=== PATIENT | female | born 1945 | race Caucasian/White ===

== ENCOUNTER 2023-01-18 22:14 | Outpatient (REF) | payer MEDICARE, SELFPAY ==
[2023-01-19 08:58] LABS: PCR FLU A Negative PCR FLU A (Negative); PCR FLU B Negative PCR FLU B (Negative); SARS PCR* ND (Negative)
== END 2023-01-18 22:15 | disposition home or self-care (01) ==
LOC: LAB 22:14
PROVIDERS: PCP Family Medicine; Visit Provider Nurse Practitioner Adult Health
DX: J10.1 Influenza due to other identified influenza virus with other respiratory manifestations (principal)
CPT/HCPCS: 87631

== ENCOUNTER 2023-11-17 14:58 | Outpatient (REF) | payer MEDICARE, BC, MEDICAID, SELFPAY ==
[2023-11-17 16:50] LABS: PCR FLU A Negative PCR FLU A (Negative); PCR FLU B Negative PCR FLU B (Negative); PCR RSV Negative PCR RSV (Negative); SARS PCR* Negative SARS-CoV-2 (Negative)
== END 2023-11-17 14:59 | disposition home or self-care (01) ==
LOC: NPINS 14:58
PROVIDERS: PCP Family Medicine; Visit Provider Nurse Practitioner Adult Health
DX: R05.1 Acute cough (principal)
CPT/HCPCS: 87631

== ENCOUNTER 2024-04-18 07:57 | Outpatient (REF) | payer MEDICARE, BC, MEDICAID, SELFPAY ==
[2024-04-18 08:11] LABS: Appearance Urine Cloudy (Clear); Bilirubin Urine Negative (Negative); Blood Urine Negative (Negative); Color Urine Yellow (Yellow); Glucose Urine Negative (Negative); Ketones Urine Negative (Negative); Leukocyte Esterase Urine Trace (Negative); Nitrite Urine Negative (Negative); Protein Urine Trace (Negative); Specific Gravity Urine >= 1.030 (1.000-1.030); Urobilinogen Urine 0.2 (0.2-1.0); pH Urine 5.5 (5.0-8.5)
[2024-04-18 08:25] LABS: RBC Urine 0-2 (0-2); Squamous Epithelial Cell Urine Few (None-Few)
[2024-04-18 08:26] LABS: Bacteria Urine Moderate
== END 2024-04-18 07:58 | disposition home or self-care (01) ==
LOC: NPINS 07:57
PROVIDERS: PCP Family Medicine; Visit Provider Nurse Practitioner Gerontology
DX: R44.3 Hallucinations, unspecified (principal); Z87.440 Personal history of urinary (tract) infections; F05 Delirium due to known physiological condition; R82.998 Other abnormal findings in urine
CPT/HCPCS: 81001; 87086

== ENCOUNTER 2024-04-19 14:48 | Emergency (ER) | payer MEDICARE, BC, MEDICAID, SELFPAY ==
[2024-04-19 14:56] VITALS: BP 139/78; PULSE 74; RESP 18; TEMP 36.6; O2SAT 97
--- NOTE | 2024-04-19 15:06 | CRLHL7_ITS ---
For Patients: As a result of the Century Cures Act, medical imaging exams and procedure reports are released immediately into your electronic medical record. You may view this report before your referring provider. If you have questions, please contact your health care provider. INDICATION: Delusions TECHNIQUE: CT of the head was performed without IV contrast. COMPARISON: 10/15/2021. FINDINGS: Parenchyma: No acute hemorrhage, infarction, or mass. Moderate confluent periventricular white matter hypoattenuation is nonspecific and is favored to represent chronic small vessel ischemic disease. Ventricles and extra-axial spaces: Mild involutional changes. Visualized paranasal sinuses: Clear. Mastoid air cells: Clear. Bones: No focal abnormality. Additional comment: None. IMPRESSION: No acute intracranial abnormality. Please note that all CT scans at this facility use dose modulation, iterative reconstruction, and/or weight-based dosing when appropriate to reduce radiation dose to as low as reasonably achievable. Dictated by Micah Gonzalez MD @ 04/19/2024 3:37:44 PM (Electronically Signed)
--- NOTE | 2024-04-19 15:55 | ED_ITS ---
HPI - General Adult General Date Seen: 04/19/24 Chief complaint: Unspecified Complaint, Adult Stated complaint: altered mental state Time Seen by Provider: 04/19/24 14:54 Source: patient, EMS and RN notes reviewed Mode of arrival: EMS Limitations: no limitations History of Present Illness HPI narrative: Patient is a 78-year-old woman who resides at [facility]. She presents to the ER by ambulance today, when I asked her what is going on she said oh, my family thinks I am crazy. When I asked for for clarification as to why they thought she was crazy, she says that she was trying to find 2 people at her residence and help them find 2 other people. She denies any other symptoms, she denies headaches, fevers, nausea or vomiting, diarrhea, black or bloody stools, abdominal pain, chest pain, difficulty breathing or urinary symptoms. She says she is quite sure that these people were there, they were at the facility and not in her room specifically. By EMS report, she is sent in because of delusions. She was evaluated yesterday with blood work and urine which was reportedly normal and was sent in today because they wanted to get a head CT. No reported focal neurologic complaints. Related Data Home Medications ?Medication ?Instructions ?Recorded ?Confirmed aspirin 81 mg tablet,delayed 81 mg PO DAILY 04/19/24 04/19/24 release (Adult Aspirin Regimen) atorvastatin 40 mg tablet (Lipitor) 40 mg PO DAILY 04/19/24 04/19/24 lacosamide 100 mg tablet 100 mg PO BID 04/19/24 04/19/24 levetiracetam 500 mg tablet 500 mg PO BID 04/19/24 04/19/24 (Keppra) losartan 50 mg tablet 50 mg PO DAILY 04/19/24 04/19/24 metoprolol succinate 50 mg 50 mg PO BID 04/19/24 04/19/24 tablet,extended release 24 hr pantoprazole 20 mg tablet,delayed 20 mg PO DAILY 04/19/24 04/19/24 release (Protonix) semaglutide 0.25 mg or 0.5 mg (2 0.5 mg subcut QWEEK 04/19/24 04/19/24 mg/3 mL) subcutaneous pen injector (Ozempic) venlafaxine 150 mg tablet,extended 150 mg PO DAILY 04/19/24 04/19/24 release 24 hr vitamins A,C,U-hawn-apqgrl 2,148 2 tab PO BID 04/19/24 04/19/24 mcg-113 mg-45 mg-17.4 mg tablet (PreserVision AREDS) Allergies Allergy/AdvReac Type Severity Reaction Status Date / Time epinephrine Allergy Unknown Verified 04/19/24 15:13 metformin Allergy Unknown Verified 04/19/24 15:13 pioglitazone Allergy Unknown Verified 04/19/24 15:13 Review of Systems Status of ROS: Reports: 6 or more systems reviewed and unremarkable except as noted in History and below Exam Narrative: Exam Narrative: Vital signs as noted above. In general, an alert, well-appearing patient. She is cooperative and pleasant. Head: Normocephalic, atraumatic. Eyes: Pupils are equal reactive. Extraocular movements are full. Conjunctivae are normal. ENT: Mucous membranes are moist. Throat is normal. Neck: Supple without lymphadenopathy. Heart: Regular rate and rhythm. No murmur or rub. Lungs: Clear bilaterally. No increased work of breathing, crackles or wheezes. Abdomen: Soft and nontender. No organomegaly. Extremities: She has a bandage on the left calf that is covering up the small wound. She says it has been there for a while, the left leg is larger in diameter than the left although she does not have pitting edema. She does not have any calf tenderness and there is no erythema at this time. She says they have told her to elevate that leg when she can. Neurologic: Patient is alert, conversant. She is oriented to place, she is not oriented to the date but she says she never knows the date. She moves all extremities equally, follows commands. Affect: Normal. Skin: Warm and dry. Well perfused. 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 She is oriented within reason, her neurologic exam is nonfocal. I did do a head CT scan as requested and this shows no acute findings by my review, final radiology read is negative. She had additional workup yesterday in terms of blood work and urine without findings. I think that the risk benefit of treating this is probably weighted more toward risks outweighing the benefits, they are not reports of aggressive or harmful behavior, and the patient does not seem at all distressed by these people that she thought she saw. Would defer to primary care in terms of further management of this, but I do think she is stable to return to [facility]. Return to the ER for acute worsening, disorientation, fevers, vomiting, focal neurologic changes. Vital Signs Vital signs: Initial Vital Signs Temperature 97.8 F 04/19/24 14:56 Temperature Source Temporal Artery Scan 04/19/24 14:56 Pulse Rate 74 04/19/24 14:56 Respiratory Rate 18 04/19/24 14:56 Blood Pressure 139/78 04/19/24 14:56 Blood Pressure Mean 98 04/19/24 14:56 Blood Pressure Position Sitting 04/19/24 14:56 Pulse Oximetry 97 04/19/24 14:56 Oxygen Delivery Method Room Air 04/19/24 14:56 Vital Signs Temperature 97.8 F 04/19/24 14:56 Pulse Rate 74 04/19/24 14:56 Respiratory Rate 18 04/19/24 14:56 Blood Pressure 139/78 04/19/24 14:56 Pulse Oximetry 97 04/19/24 14:56 Oxygen Delivery Method Room Air 04/19/24 14:56 Temperature 97.8 F 04/19/24 14:56 Pulse Rate 74 04/19/24 14:56 Respiratory Rate 18 04/19/24 14:56 Blood Pressure 139/78 04/19/24 14:56 Pulse Oximetry 97 04/19/24 14:56 Oxygen Delivery Method Room Air 04/19/24 14:56 Discharge Plan Discharge Clinical Impression: Delusions Patient Disposition: [facility] Condition: Stable Additional Instructions: Patient presents with mild delusional disorder. I would suggest further discuss ion with primary care doctor regarding risks benefits of treatment for this. For acute worsening, focal neurologic changes, fevers, etcetera, return any time. Prescriptions: No Action aspirin [Adult Aspirin Regimen] 81 mg tablet,delayed release (DR/EC) 81 mg PO DAILY atorvastatin [Lipitor] 40 mg tablet 40 mg PO DAILY losartan 50 mg tablet 50 mg PO DAILY metoprolol succinate 50 mg tablet extended release 24 hr 50 mg PO BID pantoprazole [Protonix] 20 mg tablet,delayed release (DR/EC) 20 mg PO DAILY Ozempic 0.25 mg or 0.5 mg (2 mg/3 mL) pen injector 0.5 mg subcut QWEEK venlafaxine 150 mg tablet extended release 24hr 150 mg PO DAILY lacosamide 100 mg tablet 100 mg PO BID levetiracetam [Keppra] 500 mg tablet 500 mg PO BID PreserVision AREDS 2,148 mcg-113 mg-45 mg-17.4mg tablet 2 tab PO BID Rx Instructions: administer with AM and PM meals Stand Alone Forms: [employer] Info Instructions
[2024-04-19 17:30] VITALS: O2SAT 97
[2024-04-19 17:47] VITALS: BP 146/89; PULSE 79; RESP 18
== END 2024-04-19 17:30 | disposition home or self-care (01) ==
PROVIDERS: Emergency Provider Emergency Medicine; PCP Family Medicine
DX: F22 Delusional disorders (principal)
CPT/HCPCS: 70450; 99284

== ENCOUNTER 2025-03-02 10:27 | Outpatient (CLI) | payer MEDICARE, SELFPAY ==
--- NOTE | 2025-03-02 10:45 | CRLHL7_ITS ---
For Patients: As a result of the Century Cures Act, medical imaging exams and procedure reports are released immediately into your electronic medical record. You may view this report before your referring provider. If you have questions, please contact your health care provider. DIGITAL DIAGNOSTIC LEFT MAMMOGRAM USING TOMOSYNTHESIS AND COMPUTER-AIDED DETECTION CLINICAL HISTORY: LEFT breast lump. COMPARISON: 04/26/2013. TECHNIQUE: Digital LEFT mammogram in two projections with computer-aided detection. Tomosynthesis was used in this interpretation. BREAST COMPOSITION: There are scattered areas of fibroglandular density. FINDINGS: 3D CC/MLO LEFT breast mammogram images submitted. ekg monitor tech implant is present within the medial LEFT breast corresponding to the area of concern. Benign vascular calcifications are present. No suspicious mass or architectural distortion. No adenopathy. IMPRESSION: No evidence of malignancy. RECOMMENDATIONS: Clinical follow-up. A lay language report of this examination will be provided to the patient. BI-RADS Category 2: Benign Dictated by Edouard Headley MD @ 03/02/2025 11:24:18 AM jj/Dictated by: Edouard Headley MD @ 03/02/2025 11:24:00 AM (Electronically Signed)
== END 2025-03-02 10:28 | disposition home or self-care (01) ==
LOC: MAMMO 10:27
PROVIDERS: PCP Family Medicine; Visit Provider Nurse Practitioner Gerontology
DX: N63.20 Unspecified lump in the left breast, unspecified quadrant (principal)
CPT/HCPCS: 77065; G0279